=== PATIENT | female | born 1995 ===

== ENCOUNTER 2017-02-15 21:08 | Emergency (ER) | payer BC, MEDICAID, OTHER ==
[2017-02-15 21:26] VITALS: BP 117/77
--- NOTE | 2017-02-15 21:41 | ED PDOC ---
Arrival/HPI - General Chief Complaint: Female Genitourinary Time Seen by Provider: 02/15/17 21:40 Historian: Patient - History of Present Illness Narrative History of Present Illness (Text): 02/15/17 21:40 This 21 yo female presents to this ED c/o urinary frequency, urgency, and hematuria x 2 days. Patient also c/o suprapubic pain. Denies fever, rash, vaginal discharge, n/v, or abnormal gait. Time/Duration: Other (2 days) Context: Home Past Medical History - Cardiac Hx Cardiac Disorders: No - Pulmonary Hx Respiratory Disorders: No - Neurological Hx Neurological Disorder: Yes Hx Migraine: No - HEENT Hx HEENT Disorder: No - Renal Hx Renal Disorder: No Hx Kidney Stones: No - Endocrine/Metabolic Hx Endocrine Disorders: No - Hematological/Oncological Hx Blood Disorders: No - Integumentary Hx Dermatological Disorder: No - Musculoskeletal/Rheumatological Hx Musculoskeletal Disorders: No - Gastrointestinal Hx Gastrointestinal Disorders: No - Genitourinary/Gynecological Hx Genitourinary Disorders: No - Psychiatric Hx Psychophysiologic Disorder: No Hx Substance Use: No - Anesthesia Hx Anesthesia: No Family/Social History Smoking Status: Never Smoked Hx Alcohol Use: Yes Frequency of alcohol use: Socially Hx Substance Use: No Allergies/Home Meds Allergies/Adverse Reactions: Allergies No Known Allergies Allergy (Verified 02/15/17 21:26) Physical Exam Vital Signs Temp Pulse Resp BP Pulse Ox 02/15/17 22:37 97.9 F 88 16 98 02/15/17 21:22 97.8 F 86 18 117/77 97 Medical Decision Making ED Course and Treatment: 02/15/17 22:58 Re-evaluation. Patient feels better. Discussed results and plan with patient who expresses understanding. All questions answered and there is agreement with the plan to discharge home with instructions. Patient stable for discharge. Return if symptoms persist or worsen. Re-evaluation Time: 22:58 Reassessment Condition: Re-examined, Improved - Lab Interpretations Lab Results: Lab Results 02/15/17 22:23: Urine Color [place], Urine Appearance Cloudy, Urine pH 6.0, Ur Specific [place] 1.020, Urine Protein >=300 H, Urine Glucose (UA) 250 H, Urine Ketones Trace H, Urine Blood Large H, Urine Nitrate Positive H, Urine Bilirubin Negative, Urine Urobilinogen >=8.0, Ur Leukocyte Esterase Large H, Urine RBC Tntc, Urine WBC 20 - 25, Ur Epithelial Cells 1 - 3, Urine Bacteria Mod, Urine HCG, Qual Negative I have reviewed the lab results: Yes Interpretation: Abnormal lab values (acute cystitis) - Medication Orders Current Medication Orders: Discontinued Medications Nitrofurantoin Macrocrystals (Macrobid) 100 mg PO STAT STA Stop: 02/15/17 22:46 Last Admin: 02/15/17 22:54 Dose: 100 mg Phenazopyridine HCl (Pyridium) 200 mg PO STAT STA Stop: 02/15/17 22:46 Last Admin: 02/15/17 22:54 Dose: 200 mg Disposition/Present on Arrival - Present on Arrival Any Indicators Present on Arrival: No History of DVT/PE: No History of Uncontrolled Diabetes: No Urinary Catheter: No History of Decub. Ulcer: No History Surgical Site Infection Following: None - Disposition Have Diagnosis and Disposition been Completed?: Yes Diagnosis: Acute cystitis with hematuria Disposition: HOME/ ROUTINE Disposition Time: 22:59 Patient Plan: Discharge Patient Problems: Current Active Problems Problem Status Onset Acute cystitis with hematuria Acute Condition: GOOD Discharge Instructions (ExitCare): Urinary Tract Infection in Women (ED) Additional Instructions: Call private doctor for follow up visit in 1-2 days. take medication as instructed. review urine culture in 2-3 days with your doctor. Return to emergency if symptoms worsen Drink enough fluids Prescriptions: Nitrofurantoin Macrocrystals [Macrobid] 100 mg PO BID #14 cap Phenazopyridine HCl [Pyridium] 200 mg PO TID #6 tablet Forms: [employer] (Iraqi)
[2017-02-15 22:37] VITALS: PULSE 88; RESP 16; TEMP 97.9; O2SAT 98
[2017-02-15 22:41] LABS: URINE BILIRUBIN NEGATIVE (NEGATIVE); URINE BLOOD LARGE (NEGATIVE); URINE GLUCOSE (UA) 250 mg/dL (NEGATIVE); URINE LEUKOCYTE ESTERASE LARGE Leu/uL (NEGATIVE); URINE NITRATE POSITIVE (NEGATIVE); URINE PROTEIN >=300 mg/dL (<30 mg/dL); URINE UROBILINOGEN >=8.0 E.U./dL (<1 E.U./dL)
[2017-02-15 22:45] LABS: URINE APPEARANCE CLOUDY (CLEAR); URINE COLOR ORANGE (YELLOW)
[2017-02-15 22:46] LABS: URINE RBC TNTC /hpf (0-2)
[2017-02-15 22:47] LABS: HCG,QUALITATIVE URINE NEGATIVE (NEGATIVE); URINE BACTERIA MOD (NEG); URINE WBC 20 - 25 /hpf (0-6)
== END 2017-02-15 23:11 | disposition home or self-care (01) ==
LOC: ED 21:08
DX: N30.01 Acute cystitis with hematuria (principal)